=== PATIENT | male | born 1965 | race Asian ===

== ENCOUNTER 2017-01-12 08:00 | Emergency (ER) | payer SELFPAY ==
[~2017-01-12] VITALS: Ht 167.6 cm; Wt 69.0 kg
[2017-01-12 08:02] VITALS: BP 145/81
[2017-01-12] MEDS ORDERED: [UNRECOGNIZED DRUG - OTHER] (08:06)
[2017-01-12] MEDS ORDERED: NITR0.4T49 SL (08:06)
[2017-01-12] MEDS ORDERED: NITROGLYCERIN 0.4MG TABLET SL SL ONE (08:30)
== END 2017-01-12 08:41 | disposition left against medical advice (07) ==
LOC: ER 08:09
DX: R07.9 Chest pain, unspecified (principal); I20.9 Angina pectoris, unspecified
CPT/HCPCS: 93005; 99283